=== PATIENT | female | born 1985 | race American Indian/Alaskan Native ===

== ENCOUNTER 2021-07-02 11:33 | Emergency (ER) | payer SELFPAY ==
[2021-07-02 11:42] VITALS: BP 166/92
== END 2021-07-02 12:07 | disposition home or self-care (01) ==
LOC: ED 11:33
DX: H57.89 Other specified disorders of eye and adnexa (principal); Z53.21 Procedure and treatment not carried out due to patient leaving prior to being seen by health care provider